=== PATIENT | female | born 1985 | race African-American/Black ===

== ENCOUNTER 2019-05-08 12:20 | Emergency (ER) | payer BC ==
[~2019-05-08] VITALS: Ht 177.8 cm; Wt 85.7 kg
[2019-05-08 12:22] VITALS: BP 122/86
[2019-05-08 13:30] LABS: MEAN CORPUSCULAR HGB CONC 31.9 g/dL (32.4-35.8); PLATELET COUNT 392 x10^3/uL (130-400)
[2019-05-08 13:34] LABS: ALBUMIN 3.8 g/dL (3.4-5.0); ANION GAP 7 mmol/L (5-15); CALCIUM 8.8 mg/dL (8.5-10.1); CHLORIDE 108 mmol/L (98-107); CREATININE 0.93 mg/dL (0.55-1.02)
[2019-05-08 13:45] LABS: MD YES
[2019-05-08 13:47] LABS: EOS#(MANUAL) 0.07 x10^3/uL (0.0-0.4); EOS% (MANUAL) 1 % (1-7)
[2019-05-08 13:48] LABS: ANISOCYTOSIS 1+; HYPOCHROMIA 1+; LYMPH#(MANUAL) 2.24 x10^3/uL (1-3.4); LYMPHS% (MANUAL) 34 % (22-44); MICROCYTOSIS 1+; MONOS#(MANUAL) 0.33 x10^3/uL (0.3-2.7); MONOS% (MANUAL) 5 % (2-9); SEG#(MANUAL) 3.96 x10^3/uL (1.8-6.8); SEGS% (MANUAL) 60 % (42-75)
[2019-05-08 13:49] LABS: <PLATELET ESTIMATE> ADEQUATE; <PLT MORPHOLOGY> NORMAL PLT MORPH
[2019-05-08 13:51] LABS: MICROSCOPIC INDICATED
[2019-05-08 14:21] LABS: CULTURE INDICATED? NO
--- NOTE | 2019-05-08 16:00 | NUR ---
TO ROOM FROM LOBBY. NAD.
[2019-05-08] MEDS ORDERED: KETOROLAC 30 MG/1 ML ONE (16:22)
[2019-05-08] MEDS ORDERED: KETOROLAC 30 MG/1 ML IM ONE (16:30)
--- NOTE | 2019-05-08 16:32 | NUR ---
Patient/Caregiver given discharge instructions and they have confirmed that they understand the instructions. Patient ambulatory with steady gait.
== END 2019-05-08 16:35 | disposition home or self-care (01) ==
LOC: ED 16:05
DX: N83.201 Unspecified ovarian cyst, right side (principal); D63.8 Anemia in other chronic diseases classified elsewhere; G89.29 Other chronic pain; R10.31 Right lower quadrant pain; Z90.49 Acquired absence of other specified parts of digestive tract
CPT/HCPCS: 36415; 76830; 80048; 81001; 82040; 84703; 85025; 96372; 99284; J1885